=== PATIENT | male | born 1990 | race African-American/Black ===

== ENCOUNTER 2023-08-08 19:17 | Inpatient (IN) | payer SELFPAY ==
[2023-08-08 19:44] LABS: Bacteria/HPF None Seen HPF (None Seen); Bilirubin Negative (Negative); Blood, Urine Negative (Negative); CAUTI Indications for Culture Alt mental st,lethar; Clarity Clear (Clear); Glucose, Urine (Dipstick) Normal (Negative); Ketone, Urine 60 mg/dL (Negative); Leukocyte Negative Leu/uL (Negative); Mucous/LPF Rare LPF (<2+); Nitrite Negative (Negative); Protein, Urine (Dipstick) 20 mg/dL (Neg-Trace); RBC/HPF 0-3 HPF (0-3); Specific Gravity, Urine 1.028 (1.002-1.036); Squamous Epithelial 0-3 HPF (0-3); WBC/HPF 0-3 HPF (0-3); pH, Urine 5.5 (5.0-9.0)
[2023-08-08 19:45] LABS: Urine Culture Reflex No No
[2023-08-08 19:50] LABS: Amphetamine Detected (NotDetected); Barbiturates Screen Not Detected (NotDetected); Benzodiazepine Screen Detected (NotDetected); Cocaine Metabolite Screen Not Detected (NotDetected); Methadone Not Detected (NotDetected); Methamphetamine Detected (NotDetected); Opiate Screen Not Detected (NotDetected); Oxycodone Screen Not Detected (NotDetected); Phencyclidine (PCP) Not Detected (NotDetected); THC/Cannabinoid Screen Detected (NotDetected); Tricyclic Screen Not Detected (NotDetected)
[2023-08-08 20:11] LABS: #Monocytes 0.5 thou/uL (0.11-0.59); %Basophils 0.6 % (0.0-1.0); %Eosinophils 0.7 % (0.0-10.0); %Lymphocytes 33.9 % (21.0-51.0); %Monocytes 8.6 % (0.0-10.0); Hematocrit 44.2 % (42.0-52.0); Hemoglobin 15.2 g/dL (14.0-18.0); Mean Corpuscular HGB CONC 34.4 g/dL (32.0-36.0); Mean Corpuscular Hemoglobin 29.8 pg (27.0-31.0); Mean Corpuscular Volume 86.7 fl (78.0-98.0); Mean Platelet Volume 9.4 fL (7.4-10.4); Platelet Count 218 10x3/uL (130-400); RBC Distribution Width 12.7 % (11.5-14.5); White Blood Cell (WBC) Count 5.3 10x3/uL (4.8-10.8)
[2023-08-08 20:34] LABS: Acetaminophen Less than 10 mcg/mL (10.0-30.0); Alcohol Less than 10.0 mg/dL (Less than 10); Salicylate Less than 8.0 mg/dL (15.0-30.0)
[2023-08-08 20:40] LABS: ALT (SGPT) 30 U/L (8-55); AST (SGOT) 81 U/L (5-34); Albumin 4.4 g/dL (3.5-5.0); Alkaline Phosphatase 65 U/L (40-110); Anion Gap 12 mmol/L (10-20); BUN (Urea Nitrogen) 8 mg/dL (8.9-20.6); Bilirubin, Total 1.6 mg/dL (0.2-1.2); CK (CPK) 3446 U/L (30-200); Calc. Creatinine Clearance 0 mL/min (70-130); Calcium 9.5 mg/dL (7.8-10.44); Carbon Dioxide 27 mmol/L (22-29); Chloride 103 mmol/L (98-107); Estimated GFR 90; Globulin 3.4 g/dL (2.4-3.5); Glucose 114 mg/dL (70-105); Potassium 3.6 mmol/L (3.5-5.1); Protein, Total 7.8 g/dL (6.0-8.3); Sodium 138 mmol/L (136-145)
[2023-08-08] MEDS ORDERED: Nicotine 21 MG PATCH TD PRN (21:51)
[2023-08-08] MEDS ORDERED: traZODone HCl 50 MG TAB PO SCH (22:00)
[2023-08-08] MEDS ORDERED: traZODone HCl 50 MG TAB PO PRN (22:04)
[2023-08-08] MEDS: Ondansetron ODT 4 MG TAB PO PRN (22:44)
[2023-08-08 23:26] VITALS: BMI 20.7
[2023-08-08] MEDS ORDERED: Polyethylene Glycol 3350 17 GM Packet PO PRN (23:29)
[2023-08-08] MEDS: Sodium Chloride 0.9% 1,000 ML IV SCH (23:39)
[2023-08-08] MEDS: Acetaminophen 325 MG TAB PO PRN (23:52)
[2023-08-08] MEDS: Diazepam 5 MG TAB PO SCH (23:52)
[2023-08-09 05:20] LABS: #Eosinphils 0.1 thou/uL (0.0-0.7); #Monocytes 0.4 thou/uL (0.11-0.59); #Neutrophils 2.4 thou/uL (1.40-6.50); %Basophils 0.6 % (0.0-1.0); %Eosinophils 1.4 % (0.0-10.0); %Monocytes 8.6 % (0.0-10.0); %Neutrophils 49.2 % (42.0-75.0); Hematocrit 39.6 % (42.0-52.0); Hemoglobin 13.2 g/dL (14.0-18.0); Mean Corpuscular HGB CONC 33.3 g/dL (32.0-36.0); Mean Platelet Volume 9.6 fL (7.4-10.4); Platelet Count 199 10x3/uL (130-400); RBC Distribution Width 12.7 % (11.5-14.5); White Blood Cell (WBC) Count 4.9 10x3/uL (4.8-10.8)
[2023-08-09 05:56] LABS: Anion Gap 12 mmol/L (10-20); BUN (Urea Nitrogen) 7 mg/dL (8.9-20.6); CK (CPK) 2039 U/L (30-200); Calc. Creatinine Clearance 125 mL/min (70-130); Calcium 7.8 mg/dL (7.8-10.44); Carbon Dioxide 21 mmol/L (22-29); Chloride 110 mmol/L (98-107); Estimated GFR 119; Glucose 94 mg/dL (70-105); Potassium 3.9 mmol/L (3.5-5.1); Sodium 139 mmol/L (136-145)
[2023-08-09] MEDS: Polyethylene Glycol 3350 17 GM Packet PO SCH (09:40)
[2023-08-09] MEDS: Mupirocin 2% Ointment 22 GM Tube TOP SCH (09:40)
[2023-08-09] MEDS: Haloperidol Lactate 5 MG/ML VIAL IM ONE (12:39)
[2023-08-09] MEDS: Haloperidol Lactate 5 MG/ML VIAL IM SCH (15:08)
[2023-08-09] MEDS: risperiDONE 1 MG TAB PO SCH (17:17)
[2023-08-10] MEDS: Haloperidol Lactate 5 MG/ML VIAL SLOW IVP SCH (05:03)
[2023-08-10 06:32] LABS: #Eosinphils 0.1 thou/uL (0.0-0.7); #Monocytes 0.2 thou/uL (0.11-0.59); #Neutrophils 1.1 thou/uL (1.40-6.50); %Basophils 0.9 % (0.0-1.0); %Eosinophils 2.4 % (0.0-10.0); %Lymphocytes 55.7 % (21.0-51.0); %Monocytes 6.9 % (0.0-10.0); %Neutrophils 34.1 % (42.0-75.0); Hematocrit 36.8 % (42.0-52.0); Hemoglobin 12.3 g/dL (14.0-18.0); Mean Corpuscular HGB CONC 33.4 g/dL (32.0-36.0); Mean Corpuscular Hemoglobin 30.2 pg (27.0-31.0); Mean Corpuscular Volume 90.4 fl (78.0-98.0); Mean Platelet Volume 9.8 fL (7.4-10.4); Platelet Count 186 10x3/uL (130-400); RBC Distribution Width 12.9 % (11.5-14.5); Red Blood Cell (RBC) Count 4.07 mill/uL (4.70-6.10); White Blood Cell (WBC) Count 3.3 10x3/uL (4.8-10.8)
[2023-08-10 06:51] LABS: Anion Gap 10 mmol/L (10-20); BUN (Urea Nitrogen) 5 mg/dL (8.9-20.6); CK (CPK) 1325 U/L (30-200); Calc. Creatinine Clearance 138 mL/min (70-130); Calcium 8.3 mg/dL (7.8-10.44); Carbon Dioxide 23 mmol/L (22-29); Chloride 111 mmol/L (98-107); Estimated GFR 123; Glucose 104 mg/dL (70-105); Potassium 3.8 mmol/L (3.5-5.1); Sodium 140 mmol/L (136-145)
[2023-08-10] MEDS ORDERED: BENZOCAINE/MENTHOL/ZINC CHLOR 5.1 GM TUBE TOP PRN (06:54)
[2023-08-10] MEDS: Lactated Ringer's 1,000 ML IV SCH (08:31)
[2023-08-10] MEDS: risperiDONE 1 MG TAB PO SCH (08:31)
[2023-08-10 15:23] VITALS: BP 124/83; TEMP 97.5
[2023-08-11] MEDS ORDERED: FLU VACC QS2023-24(6MOS UP)/PF 60 MCG/0.5 ML SYRINGE IM ONE (09:00)
== END 2023-08-10 17:34 | disposition short-term general hospital (02) | DRG 558 ==
LOC: ERS 19:17 → 2NO 21:16
PROVIDERS: ADMIT Family Medicine; ATTEND Family Medicine
DX: M62.82 Rhabdomyolysis (principal); F19.10 Other psychoactive substance abuse, uncomplicated; T50.995A Adverse effect of other drugs, medicaments and biological substances, initial encounter; M79.674 Pain in right toe(s); M79.675 Pain in left toe(s); L03.032 Cellulitis of left toe; L03.031 Cellulitis of right toe; F20.9 Schizophrenia, unspecified; F17.210 Nicotine dependence, cigarettes, uncomplicated; G47.00 Insomnia, unspecified; K59.00 Constipation, unspecified
CPT/HCPCS: 36415; 80048; 80053; 80306; 80307; 81001; 82550; 83874; 84443; 85025; 93005; J1630; J7050; J7120; Q0162